=== PATIENT | male | born 1955 | race Caucasian/White ===

== ENCOUNTER → 2017-12-02 | Outpatient (CLI) | payer BC | LOC: GMAB 10:28 | PROVIDERS: ATTEND Family Medicine | DX: Z00.00 Encounter for general adult medical examination without abnormal findings (principal) ==

== ENCOUNTER → 2018-04-14 | Outpatient (CLI) | payer BC | LOC: GMAB 11:43 | PROVIDERS: ATTEND Family Medicine | DX: R97.20 Elevated prostate specific antigen [PSA] (principal) ==

== ENCOUNTER 2018-06-25 05:30 | Day surgery (SDC) | payer BC ==
[2018-06-25] MEDS ORDERED: LACTATED RINGERS 1,000 ML ONE (06:14)
[2018-06-25] MEDS ORDERED: MIDAZOLAM INJ 2 MG/2 ML VIAL ONE (07:16)
[2018-06-25] MEDS ORDERED: LIDOCAINE 1% 10 ML VIAL INJ ONE (10:00)
[2018-06-25] MEDS ORDERED: PROPOFOL 200 MG/20 ML VIAL IV ONE (10:00)
[2018-06-25 10:04] VITALS: TEMP 96.8
--- NOTE | 2018-06-25 10:37 | OP ---
DATE OF PROCEDURE: 06/25/18 PREPROCEDURE DIAGNOSIS: 1. Colorectal cancer screening. POSTPROCEDURE DIAGNOSIS: 1. Internal hemorrhoids 2. Diverticulosis. PROCEDURE: 1. Colonoscopy. SURGEON: Dm Redd MD SEDATION: The patient was sedated via IV propofol by the Anesthesia Department. COMPLICATIONS: No immediate complications. CONSENT: Prior to the procedure, risks, benefits and alternatives to the therapy were discussed with the patient. The risks included bleeding, infection , perforation and . The patient agreed to the procedure and signed a consent. PREPROCEDURE ANESTHESIA ASSESSMENT: An examination revealed no contraindication to sedation. Airway examination demonstrated a Mallampati class type 2, ASA grade assessment type 2. Throughout the procedure, the patient's blood pressure, pulse and oxygen saturation were monitored continuously. PROCEDURE: The patient was placed in the left lateral decubitus position and a rectal examination was performed. The rectal examination was within normal limits. The Olympus colonoscope was passed in the anus, rectum, transverse and ascending colon. Preparation quality was good. The withdrawal time was greater than 6 minutes. The patient tolerated the procedure well. FINDINGS: 1. Diverticulosis found in the sigmoid colon. 2. Small, non-bleeding internal hemorrhoids were found on retroflexion. 3. Otherwise, the examination was entirely normal. RECOMMENDATION: 1. Return the patient home. 2. Resume previous diet. 4. Repeat colonoscopy in ten years' time. 5. Obtain fecal occult blood testing on a yearly basis, Cologuard in 3 years' time and every 3 years. 6. Findings were discussed with the patient and family members. 7. Return to referring physician as previously scheduled. #[id number] [facility]
[2018-06-25 14:11] VITALS: BP 162/88; O2SAT 98
== END 2018-06-25 10:35 | disposition home or self-care (01) ==
LOC: AMB 05:30
PROVIDERS: ATTEND Internal Medicine Gastroenterology
DX: Z12.11 Encounter for screening for malignant neoplasm of colon (principal); K57.30 Diverticulosis of large intestine without perforation or abscess without bleeding; K64.8 Other hemorrhoids; I10 Essential (primary) hypertension; G47.30 Sleep apnea, unspecified; Z83.71 Family history of colonic polyps; Z79.899 Other long term (current) drug therapy
CPT/HCPCS: 00812; 45378; J2250; J3490; J7120